=== PATIENT | female | born 1950 | race Caucasian/White ===

== ENCOUNTER → 2018-03-28 | Outpatient (CLI) | payer MEDICARE ==
[2016-06-13 10:22] VITALS: BMI 44.1
[~2018-03-28] MED LIST: ACET-1966 PO; ALBU8.5H IH; ASCO-178 PO; ASPI-1441 PO; ASPI-1471 PO; AZIT-18 PO; CALC-886 PO; CEF300 PO; CET10 PO; CHOL200074 PO; EZE10 PO; FENO54TA6 PO; FERR324T4 PO; FISH OIL1 CAP PO; FURO-45 PO; GABA-549 PO; GLUC500C29 PO; GUAI600T57 PO; IBUP800T37 PO; LEV75 PO; LEVO88TA45 PO; LISI-350 PO; LOSA-51 PO; LOSA100T67 PO; LOSA50TA72 PO; MULT1CAP41 PO; OMEP-218 PO; PANT40TA65 PO; POTA-23 PO; POTA-28 PO; POTA20TA94 PO; RANI-375 PO; SUCR1TAB51 PO; VITA-198 PO; VITA150T2 PO; [UNRECOGNIZED DRUG - CODE] PO; [UNRECOGNIZED DRUG - CODE] PO
--- NOTE | 2018-03-29 10:41 | RADIOLOGY IMAGING REPORT ---
FACILITY: [facility] - [place] PATIENT NAME: ETIENNE RENDON : [id number] MR: [id number] V: [id number] EXAM DATE: [id number] ORDERING PHYSICIAN: PETER LUA TECHNOLOGIST: Jahaira Berg PROCEDURE:BILATERAL DIGITAL SCREENING MAMMOGRAM WITH CAD ASSISTED INTERPRETATION & 3D TOMOSYNTHESIS COMPARISON:Prior mammograms 03/22/17, 02/17/16, 01/21/15, 01/27/14. INDICATIONS:SCREENING FINDINGS: A small amount of fibroglandular tissue is seen throughout the breasts. The parenchymal pattern has remained stable allowing for difference in mammographic technique & patient positioning. There is no evidence of malignant appearing mass, malignant appearing calcifications or other secondary sign of malignancy in either breast. DIAGNOSTIC CATEGORY 1--NEGATIVE. RECOMMENDATIONS: ROUTINE MAMMOGRAM AND CLINICAL EVALUATION. IMPRESSION: BIRADS 1: Negative No significant abnormality is seen. Dictated by: Anali Bansal M.D. on 03/28/2018 at 8:18 Transcribed by: JULIAN on 03/28/2018 at 8:41 Approved by: Anali Bansal M.D. on 03/29/2018 at 10:40 [facility]
== END ==
LOC: MAMO 00:50
PROVIDERS: ATTEND Family Medicine
DX: Z12.31 Encounter for screening mammogram for malignant neoplasm of breast (principal)
CPT/HCPCS: 77063; 77067

== ENCOUNTER → 2019-06-19 | Outpatient (CLI) | payer MEDICARE ==
[2016-06-13 10:22] VITALS: BMI 44.1
[~2019-06-19] MED LIST changes: +FLAX100029 PO; -LOSA100T67 PO; +LOSA100T75 PO; -LOSA50TA72 PO; +LOSA50TA80 PO; -RANI-375 PO; +RANI-886 PO; -[UNRECOGNIZED DRUG - CODE] PO
--- NOTE | 2019-06-19 11:13 | RADIOLOGY IMAGING REPORT ---
FACILITY: [facility] PATIENT NAME: Cyndi Gay : 1950 MR: [id number] V: [id number] EXAM DATE: ORDERING PHYSICIAN: PETER LUA TECHNOLOGIST: Location: [facility] - [place] Patient: Cyndi Gay : 1950 Visit/Account:[id number] Date of Sevice: 06/19/2019 Exam type: US VENOUS LOWER EXT LT History: Hit leg in April, pain and redness lateral aspect of the left calf Comparison: None. Findings: Left lower extremity veins were imaged including the left common femoral vein greater saphenous vein superficial femoral vein, popliteal vein, posterior tibial vein, peroneal vein and anterior tibial ve in revealing no evidence of intraluminal thrombi the veins were compressible and demonstrated augment ation. Along the posterior medial aspect of the left knee is a 5.6 x 3.7 x 1.8 cm fluid collection with murray cent soft tissue edema Incidentally noted are bilateral inguinal lymph nodes. The largest on the right measures 3.7 x 2.9 x 0.6 cm and the largest on the left measures 4.5 x 2.9 x 1.3 cm IMPRESSION: 1. No evidence of DVT involving the left lower extremity veins There is a fluid collection along the posterior medial aspect left knee with adjacent soft tissue clari ma likely posttraumatic collection given the clinical history Incidental note of bilateral inguinal lymph nodes Report Dictated By: Anali Bansal MD at 06/19/2019 11:00 AM Report E-Signed By: Anali Bnasal MD at 06/19/2019 11:04 AM [id number]
--- NOTE | 2019-06-19 11:22 | RADIOLOGY IMAGING REPORT ---
FACILITY: [facility] PATIENT NAME: Cyndi Gay : 1950 MR: [id number] V: [id number] EXAM DATE: ORDERING PHYSICIAN: PETER LUA TECHNOLOGIST: Location: [facility] - [place] Patient: Cyndi Gay : 1950 Visit/Account:[id number] Date of Sevice: 06/19/2019 HAND COMPLETE RIGHT History: Right hand pain. Comparison study: None. Findings: There is no fracture or dislocation involving the right hand. There are findings of joint space narrowed subchondral cirrhosis involving the right first CMC joint suggesting osteoarthrosis. There is no chondrocalcinosis. IMPRESSION: 1. There is no fracture involving the right hand. 2. 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 Report Dictated By: Ramírez Berman MD at 06/19/2019 11:13 AM Report E-Signed By: Ramírez Berman MD at 06/19/2019 11:13 AM WSN:[id number]
== END ==
LOC: US 01:53
PROVIDERS: ATTEND Family Medicine
DX: M18.9 Osteoarthritis of first carpometacarpal joint, unspecified (principal); M79.662 Pain in left lower leg; M79.644 Pain in right finger(s)